=== PATIENT | male | born 1960 ===

== ENCOUNTER → 2016-07-20 | Outpatient (CLI) | payer OTHER ==
--- NOTE | 2016-07-20 12:13 | XR ---
EXAMINATION TYPE: XR chest 2V DATE OF EXAM: 07/20/2016 HISTORY: R76.11 inconclusive reaction to TB test. REFERENCE: Previous study dated 04/20/2014. FINDINGS: The lungs are clear. Pleural spaces are clear. Heart size is upper limits of normal. IMPRESSION: NO ACUTE INTRATHORACIC ABNORMALITY.
== END | disposition home or self-care (01) ==
LOC: RADXRMAIN 10:56
PROVIDERS: ATTEND Dermatology MOHS-Micrographic Surgery
DX: R76.11 Nonspecific reaction to tuberculin skin test without active tuberculosis (principal)
CPT/HCPCS: 71020

== ENCOUNTER 2020-04-20 15:24 | Emergency (ER) | payer MEDICARE, OTHER ==
--- NOTE | 2020-04-20 15:47 | ED ---
General Adult HPI - General Chief complaint: Fall Stated complaint: Syncope Time Seen by Provider: 04/20/20 15:25 Source: patient, EMS Mode of arrival: EMS Limitations: no limitations - History of Present Illness Initial comments: 59-year-old male with past medical history of dementia, hypertension, alcohol abuse who presents to the emergency department after he had a syncopal episode at [facility]. The patient is a very poor historian and cannot provide a history. He states that he normally does not see a doctor. He was shopping at the grocery store with his sister when he ended up passing out. Patient reports feeling very faint and then fell to the ground. He is unsure if he hit his head. States that he was not out for very long. EMS was called and transported the patient hospital. He has no complaints at this time. Denies headache or visual changes. No neck pain. Denies any chest pain or shortness of breath. No abdominal pain or changes in his bowel or bladder habits. Denies previous cardiac history per EMS the patient's sister is his guardian. She reports that he has passed out several times within the past month. There is no reported seizure-like activity. Remainder of the HPI is limited because the patient's inability to provide a history - Related Data Home Medications Medication Instructions Recorded Confirmed No Known Home Medications 04/20/20 04/20/20 Allergies Allergy/AdvReac Type Severity Reaction Status Date / Time No Known Allergies Allergy Verified 04/20/20 17:41 Review of Systems ROS Statement: Those systems with pertinent positive or pertinent negative responses have been documented in the HPI. ROS Other: All systems not noted in ROS Statement are negative. Past Medical History Past Medical History: Dementia, Hypertension, Liver Disease, Osteoarthritis (OA), Prostate Disorder, Thyroid Disorder Additional Past Medical History / Comment(s): psoriasis, arthritis, chronic cholecystitis, alcoholic liver disease, hypertension, increased MCV, thrombocytopenia, dementia possibly alcohol related, subclinical hypothyroidism, chronic tobacco use and dependence, chronic alcohol use and dependence. History of Any Multi-Drug Resistant Organisms: None Reported Past Surgical History: No Surgical Hx Reported, Adenoidectomy, Tonsillectomy Additional Past Anesthesia/Blood Transfusion Reaction / Comment(s): has not had anesthesia Past Psychological History: No Psychological Hx Reported Smoking Status: Current every day smoker Past Alcohol Use History: Daily, Heavy Past Drug Use History: None Reported - Past Family History Father Family Medical History: Cancer, Coronary Artery Disease (CAD), Diabetes Mellitus, Hypertension (Father in his late 70s with some sort of cancer also he had diabetes hypertension and CAD.) Additional Family Medical History / Comment(s): patient not sure what type of cancer his father had Mother Family Medical History: Coronary Artery Disease (CAD), Diabetes Mellitus, Hype rtension (Mother in her late 70s with diabetes hypertension and CAD as well) Brother(s) Family Medical History: Coronary Artery Disease (CAD) (Patient had a brother who from a heart attack.) Sister(s) Family Medical History: Diabetes Mellitus (Patient has 3 sisters one of them with diabetes mellitus type 2) Daughter(s) Family Medical History: No Reported History (Patient has one daughter no major medical problem.) Son(s) Family Medical History: No Reported History (Patient has one son no major medical problem.) General Exam Limitations: no limitations General appearance: alert, in no apparent distress Head exam: Present: atraumatic, normocephalic, normal inspection Eye exam: Present: normal appearance, PERRL, EOMI. Absent: scleral icterus, conjunctival injection, periorbital swelling ENT exam: Present: normal exam, mucous membranes moist Neck exam: Present: normal inspection. Absent: tenderness, meningismus, lymphadenopathy Respiratory exam: Present: normal lung sounds bilaterally. Absent: respiratory distress, wheezes, rales, rhonchi, stridor Cardiovascular Exam: Present: regular rate, normal rhythm, normal heart sounds. Absent: systolic murmur, diastolic murmur, rubs, gallop, clicks GI/Abdominal exam: Present: soft, normal bowel sounds. Absent: distended, tenderness, guarding, rebound, rigid Extremities exam: Present: normal inspection, full ROM, normal capillary refill. Absent: tenderness, pedal edema, joint swelling, calf tenderness Back exam: Present: normal inspection Neurological exam: Present: alert, oriented X3, CN II-XII intact Psychiatric exam: Present: normal affect, normal mood Skin exam: Present: warm, dry, intact, normal color. Absent: rash Course Vital Signs 04/20/20 04/20/20 04/20/20 15:25 16:04 17:09 Temperature 97.5 F L Pulse Rate 90 70 Pulse Rate [ 82 Sitting Pulse Oximetery] Pulse Rate [ 84 Standing Pulse Oximetery] Pulse Rate [ 88 Supine Pulse Oximetery] Respiratory 16 18 Rate Blood Pressure 139/90 135/86 Blood Pressure 135/80 [Right Arm Sitting] Blood Pressure 135/86 [Right Arm Standing] Blood Pressure 124/82 [Right Arm Supine] O2 Sat by Pulse 99 99 Oximetry 04/20/20 18:03 Temperature 98.1 F Pulse Rate 76 Pulse Rate [ Sitting Pulse Oximetery] Pulse Rate [ Standing Pulse Oximetery] Pulse Rate [ Supine Pulse Oximetery] Respiratory 18 Rate Blood Pressure 130/79 Blood Pressure [Right Arm Sitting] Blood Pressure [Right Arm Standing] Blood Pressure [Right Arm Supine] O2 Sat by Pulse 98 Oximetry - Reevaluation(s) Reevaluation #1: 04/20/20 18:01 Discussed results with patient. Recommended admission. Patient wishes to sign out AMA. EKG Findings - EKG Comments: EKG Findings:: EKG demonstrates normal symptoms with a ventricular rate of 85. TN Interval 162. QRS 84. QTC of 478. No acute ST segment elevations or depressions concerning for ischemic changes Medical Decision Making - Medical Decision Making Upon arrival patient is placed into room 20. A thorough history and physical exam was performed. Patient is alert and oriented 3. Patient denies any pain or injury from the fall. Unknown if he hit his head. Did recommend laboratory studies and imaging for which the patient did agree to. Lab studies are reviewed. Chest x-ray demonstrates no active cardiopulmonary disease. CT of the head demonstrates disc space narrowing at C5-6. No fracture. Mild cerebral atrophy. No acute intracranial abnormality. Discussed the results with the patient. Did recommend admission for which the patient refused. We were told that his sister was his POA. We did call and discuss the patient's care with him. She reports that the patient continues to make decisions for himself and he has no guardian. She reports that if he is refusing care that she cannot force him. She does agree that she wishes he would stay however as the patient's is accepting of the risks of leaving without further evaluation, she does agree to come pick him up. Patient agrees to sign out AGAINST MEDICAL ADVICE. I did inform him of the possibility of permanent disability and even for which the patient understood. Recommended that he follow-up with his primary care physician return to the emergency room and should he agree to further care. Patient was then discharged home in stable condition - Lab Data Result diagrams: 04/20/20 16:05 04/20/20 16:05 Lab Results 04/20/20 04/20/20 04/20/20 Range/Units 16:05 16:05 16:05 WBC 8.2 (3.8-10.6) k/uL RBC 4.76 (4.30-5.90) m/uL Hgb 16.2 (13.0-17.5) gm/dL Hct 47.3 (39.0-53.0) % MCV 99.5 (80.0-100.0) fL MCH 34.0 (25.0-35.0) pg MCHC 34.2 (31.0-37.0) g/dL RDW 12.6 (11.5-15.5) % Plt Count 201 (150-450) k/uL MPV 8.7 Neutrophils % 56 % Lymphocytes % 33 % Monocytes % 4 % Eosinophils % 5 % Basophils % 1 % Neutrophils # 4.6 (1.3-7.7) k/uL Lymphocytes # 2.7 (1.0-4.8) k/uL Monocytes # 0.3 (0-1.0) k/uL Eosinophils # 0.4 (0-0.7) k/uL Basophils # 0.1 (0-0.2) k/uL PT 10.3 (9.0-12.0) sec INR 1.0 (<1.2) APTT 26.3 (22.0-30.0) sec Sodium 137 (137-145) mmol/L Potassium 4.4 (3.5-5.1) mmol/L Chloride 101 (98-107) mmol/L Carbon Dioxide 22 (22-30) mmol/L Anion Gap 14 mmol/L BUN 5 L (9-20) mg/dL Creatinine 0.67 (0.66-1.25) mg/dL Est GFR (CKD-EPI)AfAm >90 (>60 ml/min/1.73 sqM) Est GFR (CKD-EPI)NonAf >90 (>60 ml/min/1.73 sqM) Glucose 98 (74-99) mg/dL Calcium 9.0 (8.4-10.2) mg/dL Total Bilirubin 0.6 (0.2-1.3) mg/dL AST 27 (17-59) U/L ALT 12 (4-49) U/L Alkaline Phosphatase 97 (38-126) U/L Troponin I (0.000-0.034) ng/mL Total Protein 7.9 (6.3-8.2) g/dL Albumin 4.5 (3.5-5.0) g/dL 04/20/20 Range/Units 16:05 WBC (3.8-10.6) k/uL RBC (4.30-5.90) m/uL Hgb (13.0-17.5) gm/dL Hct (39.0-53.0) % MCV (80.0-100.0) fL MCH (25.0-35.0) pg MCHC (31.0-37.0) g/dL RDW (11.5-15.5) % Plt Count (150-450) k/uL MPV Neutrophils % % Lymphocytes % % Monocytes % % Eosinophils % % Basophils % % Neutrophils # (1.3-7.7) k/uL Lymphocytes # (1.0-4.8) k/uL Monocytes # (0-1.0) k/uL Eosinophils # (0-0.7) k/uL Basophils # (0-0.2) k/uL PT (9.0-12.0) sec INR (<1.2) APTT (22.0-30.0) sec Sodium (137-145) mmol/L Potassium (3.5-5.1) mmol/L Chloride (98-107) mmol/L Carbon Dioxide (22-30) mmol/L Anion Gap mmol/L BUN (9-20) mg/dL Creatinine (0.66-1.25) mg/dL Est GFR (CKD-EPI)AfAm (>60 ml/min/1.73 sqM) Est GFR (CKD-EPI)NonAf (>60 ml/min/1.73 sqM) Glucose (74-99) mg/dL Calcium (8.4-10.2) mg/dL Total Bilirubin (0.2-1.3) mg/dL AST (17-59) U/L ALT (4-49) U/L Alkaline Phosphatase (38-126) U/L Troponin I <0.012 (0.000-0.034) ng/mL Total Protein (6.3-8.2) g/dL Albumin (3.5-5.0) g/dL Disposition Clinical Impression: Fall, Syncope Disposition: Left Against Medical Advice Condition: Serious Additional Instructions: I recommended admission. You are leaving against medical advice. I recommend you follow up withy your doctor as soon as possible. Return to the ED should you agree to have further workup performed. Is patient prescribed a controlled substance at d/c from ED?: No Referrals: None,Stated [Primary Care Provider] - 1-2 days Time of Disposition: 18:02
[2020-04-20 16:10] LABS: Basophils # (A) 0.1 k/uL (0-0.2); Basophils % (A) 1 %; Eosinophils # (A) 0.4 k/uL (0-0.7); Eosinophils % (A) 5 %; HCT 47.3 % (39.0-53.0); HGB 16.2 gm/dL (13.0-17.5); Lymphocytes # (A) 2.7 k/uL (1.0-4.8); Lymphocytes % (A) 33 %; MCHC 34.2 g/dL (31.0-37.0); MCV 99.5 fL (80.0-100.0); Mean Platelet Volume 8.7; Monocytes # (A) 0.3 k/uL (0-1.0); Monocytes % (A) 4 %; Neutrophils # (A) 4.6 k/uL (1.3-7.7); Neutrophils % (A) 56 %; Platelet Count 201 k/uL (150-450); RBC 4.76 m/uL (4.30-5.90); RDW 12.6 % (11.5-15.5); WBC 8.2 k/uL (3.8-10.6)
[2020-04-20 16:18] LABS: ALT 12 U/L (4-49); AST 27 U/L (17-59); African American GFR (CKD) >90 (>60 ml/min/1.73 sqM); Albumin 4.5 g/dL (3.5-5.0); Alkaline Phosphatase 97 U/L (38-126); Anion Gap 14 mmol/L; Blood Urea Nitrogen 5 mg/dL (9-20); Carbon Dioxide 22 mmol/L (22-30); Chloride 101 mmol/L (98-107); Glucose 98 mg/dL (74-99); Non-African American GFR(CKD) >90 (>60 ml/min/1.73 sqM); Potassium 4.4 mmol/L (3.5-5.1); Sodium 137 mmol/L (137-145); Total Bilirubin 0.6 mg/dL (0.2-1.3); Total Protein 7.9 g/dL (6.3-8.2)
[2020-04-20 16:20] LABS: Partial Thromboplastin Time 26.3 sec (22.0-30.0); Prothrombin Time 10.3 sec (9.0-12.0)
--- NOTE | 2020-04-20 16:54 | XR ---
EXAMINATION TYPE: XR chest 2V DATE OF EXAM: 04/20/2020 COMPARISON: July 20, 2016 HISTORY: Syncope TECHNIQUE: FINDINGS: Heart and mediastinum are normal. Lungs are clear. Diaphragm is normal. Costophrenic angles are clear. There is old healed fracture left clavicle. IMPRESSION: No active cardiopulmonary disease. No change.
[2020-04-20 17:11] VITALS: RESP 18
--- NOTE | 2020-04-20 17:40 | CT ---
EXAMINATION TYPE: CT brain cspine wo con DATE OF EXAM: 04/20/2020 COMPARISON: CT brain 04/10/2014 HISTORY: Syncope and frontal head injury. Neck pain CT DLP: 1262 mGycm Automated exposure control for dose reduction was used. There is mild cerebral atrophy. There is no mass effect nor midline shift. There is no sign of intrac ranial hemorrhage. The calvarium is intact. The skull base is intact. There is normal aeration of the mastoid sinuses. The cervical vertebra have normal alignment. There is disc space narrowing at C5-6. The facet joints are intact. There is minimal multilevel cervical hypertrophic facet arthropathy. The prevertebral sof t tissues are intact. There is no evidence of cervical spine fracture. IMPRESSION: Disc space narrowing at C5-6. No fracture. Mild cerebral atrophy. No acute intracranial abnormality. Brain unchanged compared to old exam.
[2020-04-20 18:06] VITALS: BP 130/79; PULSE 76; TEMP 98.1
== END 2020-04-20 19:25 | disposition left against medical advice (07) ==
LOC: EC 15:24
DX: R55 Syncope and collapse (principal); G31.9 Degenerative disease of nervous system, unspecified; E07.9 Disorder of thyroid, unspecified; F03.90 Unspecified dementia, unspecified severity, without behavioral disturbance, psychotic disturbance, mood disturbance, and anxiety; M48.02 Spinal stenosis, cervical region; I10 Essential (primary) hypertension; M19.90 Unspecified osteoarthritis, unspecified site; F17.200 Nicotine dependence, unspecified, uncomplicated; W19.XXXA Unspecified fall, initial encounter; Z90.09 Acquired absence of other part of head and neck
CPT/HCPCS: 36415; 70450; 71046; 72125; 80053; 84484; 85025; 85610; 85730; 93005; 99284